=== PATIENT | female | born 1950 | race Asian ===

== ENCOUNTER 2020-05-10 12:13 | Emergency (ER) | payer MEDICARE, MEDICAID ==
[~2020-05-10] VITALS: Ht 152.4 cm; Wt 61.2 kg
--- NOTE | 2020-05-10 12:20 | NUR ---
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 100cc normal saline and 4mg zofran ivp given by paramedics en route to ED. to ER bed 12, hooked to monitor, patient aao X 4. breathing even and unlabored. changed to hosp gown, warm blanket provided, Dr Shaikh at bedside
--- NOTE | 2020-05-10 12:39 | NUR ---
composite technician at bedside
[2020-05-10 12:41] LABS: BASOPHILS % (AUTO) 0.3 % (0.0-2.0); HEMATOCRIT 41 % (33-45); HEMOGLOBIN 13.4 g/dL (11.5-14.8); LYMPHOCYTES # (AUTO) 0.8 /CMM (0.8-4.8); LYMPHOCYTES % (AUTO) 7.3 % (20.0-44.0); MEAN CORPUSCULAR HGB CONC 33 g/dl (31.0-36.0); MEAN CORPUSCULAR VOLUME 88 fL (82-100); MONOCYTES # (AUTO) 0.4 /CMM (0.1-1.30); MONOCYTES % (AUTO) 3.8 % (2.0-12.0); NEUTROPHILS # (AUTO) 10.1 /CMM (1.8-8.9); NEUTROPHILS % (AUTO) 87.6 % (43.0-81.0); PLATELET COUNT (AUTO) 193 /CMM (150-450); RED BLOOD CELL COUNT(AUTO) 4.65 MIL/uL (4.0-5.2); WHITE BLOOD COUNT (AUTO) 11.5 K/uL (4.3-11.0)
[2020-05-10 12:51] LABS: CALCIUM, SERUM 8.7 mg/dL (8.5-10.1); CARBON DIOXIDE 30 mmol/L (21-32); CHLORIDE 100 mmol/L (98-107); GLUCOSE 131 mg/dL (74-106); POTASSIUM 3.3 mmol/L (3.5-5.1); SODIUM SERUM 137 mmol/L (136-145); UREA NITROGEN, BLOOD 17 mg/dL (7-18)
[2020-05-10 13:05] LABS: ALANINE AMINOTRANSFERASE 36 U/L (12-78); ALBUMIN 4.2 g/dL (3.4-5.0); ALKALINE PHOSPHATASE 69 U/L (46-116); ASPARTATE AMINOTRANSFERASE 27 U/L (15-37); BILIRUBIN,DIRECT 0.1 mg/dL (0.0-0.2); BILIRUBIN,TOTAL 0.6 mg/dL (0.2-1.0)
--- NOTE | 2020-05-10 13:17 | NUR ---
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
--- NOTE | 2020-05-10 15:07 | NUR ---
IV removed. Catheter intact and site benign. Pressure and 4x4 applied to site. No bleeding noted.Patient discharged to home eith daughter in stable condition. Written and verbal after care instructions given. Patient verbalizes understanding of instruction.
[2020-05-10 15:08] VITALS: BP 154/88
== END 2020-05-10 15:08 | disposition home or self-care (01) ==
LOC: ER 12:17
DX: R11.0 Nausea (principal); R53.1 Weakness; R55 Syncope and collapse; E11.9 Type 2 diabetes mellitus without complications; Z88.2 Allergy status to sulfonamides
CPT/HCPCS: 36415; 71045-TC; 80048-TC; 80076-TC; 84484-TC; 85025-TC

== ENCOUNTER 2020-07-06 10:52 | Emergency (ER) | payer MEDICARE, OTHER ==
[~2020-07-06] VITALS: Ht 152.4 cm; Wt 61.2 kg
--- NOTE | 2020-07-06 10:52 | NUR ---
PT BIBRA 860 FROM HOME C/O NAUSEA/DIZZINESS S/P TOOTH EXTRACTION. 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 WILL CONTINUE TO MONITOR.
--- NOTE | 2020-07-06 11:02 | NUR ---
AT BEDSIDE FOR EVAL.
[2020-07-06] MEDS ORDERED: ONDANSETRON HCL/PF 4 MG/2 ML VIAL ONE (11:12)
[2020-07-06] MEDS ORDERED: ACETAMINOPHEN ES 500 MG TABLET ONE (11:12)
[2020-07-06] MEDS ORDERED: ONDA4TAB5 PO (11:29)
[2020-07-06] MEDS ORDERED: ACETAMINOPHEN ES 500 MG TABLET PO ONE (11:30)
[2020-07-06] MEDS ORDERED: ONDANSETRON HCL/PF - ER 4 MG/2 ML VIAL IM ONE (11:30)
[2020-07-06 11:35] VITALS: BP 134/74
--- NOTE | 2020-07-06 11:35 | NUR ---
Patient discharged to home in stable condition. Written and verbal after care instructions given. Patient verbalizes understanding of instruction.
== END 2020-07-06 11:47 | disposition home or self-care (01) ==
LOC: ER 10:52
DX: R11.0 Nausea (principal); R51.9 Headache, unspecified; E11.9 Type 2 diabetes mellitus without complications; Z95.5 Presence of coronary angioplasty implant and graft; Z88.2 Allergy status to sulfonamides
CPT/HCPCS: 96372; 99283; J2405 ×2